=== PATIENT | male | born 1955 | race Caucasian/White ===

== ENCOUNTER 2017-06-09 09:00 | Emergency (ER) | payer OTHER ==
[~2017-06-09] VITALS: Ht 170.2 cm; Wt 73.9 kg
[2017-06-09] MEDS ORDERED: IV NORMAL SALINE 1,000ML 1,000 ML IV SCH (09:09)
--- NOTE | 2017-06-09 09:13 | ED.ADGEN ---
Past History Past Medical History: Hypertension Past Surgical History: No Surgical History Alcohol Use: None Drug Use: None Adult General Chief Complaint Chief Complaint Weakness/fatigue HPI HPI Patient is a 61 year old male who presents with weakness over the last several days. He states that started 2 days ago needs just felt nauseated not been eating or drinking much. He states it also hurts when he tries to swallow. He states he's felt so bad he hasn't felt well enough to smoke cigarettes. Has past medical history of bipolar and hypertension. He was seen by his primary care physician this morning who wanted him to have IV fluids and lab work done at the ER today. He denies any chest pain unless he swallowing and then he states it feels like "a bubble" in his chest. He states he did have 2 episodes of loose stools the last 2 days but denies any vomiting. Review of Systems Review of Systems Constitutional: Denies fever or chills [] Eyes: Denies change in visual acuity, redness, or eye pain [] HENT: Denies nasal congestion or sore throat [] Respiratory: Denies cough or shortness of breath [] Cardiovascular: No additional information not addressed in HPI [] GI: Denies abdominal pain, nausea, vomiting, bloody stools or diarrhea [] : Denies dysuria or hematuria [] Musculoskeletal: Denies back pain or joint pain [] Integument: Denies rash or skin lesions [] Neurologic: Denies headache, focal weakness or sensory changes [] Endocrine: Denies polyuria or polydipsia [] Current Medications Current Medications Current Medications Medications (Trade) Dose Ordered Sig/[facility] Start Time Stop Time Status Last Admin Dose Admin Fentanyl Citrate (Fentanyl 2ml Vial) 50 mcg PRN Q15MIN PRN 06/09/17 10:30 06/10/17 10:29 Sodium Chloride 1,000 ml @ 1,000 mls/hr 1X ONCE 06/09/17 10:15 06/09/17 11:15 DC 06/09/17 10:15 1,000 MLS/HR Allergies Allergies Allergies Coded Allergies Type Severity Reaction Last Updated Verified No Known Drug Allergies 12/02/15 No Physical Exam Physical Exam Constitutional: Well developed, well nourished, no acute distress, non-toxic appearance. [] HENT: Normocephalic, atraumatic, bilateral external ears normal, oropharynx moist, no oral exudates, nose normal. [] Eyes: PERRLA, EOMI, conjunctiva normal, no discharge. [] Neck: Normal range of motion, no tenderness, supple, no stridor. [] Cardiovascular:Heart rate regular rhythm, no murmur [] Lungs & Thorax: Bilateral breath sounds clear to auscultation [] Abdomen: Bowel sounds normal, soft, no tenderness, no masses, no pulsatile masses. [] Skin: Warm, dry, no erythema, no rash. [] Back: No tenderness, no CVA tenderness. [] Extremities: No tenderness, no cyanosis, no clubbing, ROM intact, no edema. [] Neurologic: Alert and oriented X 3, normal motor function, normal sensory function, no focal deficits noted. [] Psychologic: Affect normal, judgement normal, mood normal. [] Current Patient Data Vital Signs Vital Signs Date Time Temp Pulse Resp B/P (MAP) Pulse Ox O2 Delivery O2 Flow Rate FiO2 06/09/17 10:30 82 16 106/61 (76) 97 Room Air 06/09/17 09:09 98.2 Lab Results Laboratory Tests Test 06/09/17 09:24 White Blood Count 9.7 x10^3/uL (4.0-11.0) Red Blood Count 4.76 x10^6/uL (4.30-5.70) Hemoglobin 15.7 g/dL (13.0-17.5) Hematocrit 45.9 % (39.0-53.0) Mean Corpuscular Volume 97 fL (79-100) Mean Corpuscular Hemoglobin 33 pg (25-35) Mean Corpuscular Hemoglobin Concent 34 g/dL (31-37) Red Cell Distribution Width 14.9 % (11.5-14.5) H Platelet Count 238 x10^3/uL (140-400) Neutrophils (%) (Auto) 66 % (31-73) Lymphocytes (%) (Auto) 19 % (24-48) L Monocytes (%) (Auto) 14 % (0-9) H Eosinophils (%) (Auto) 0 % (0-3) Basophils (%) (Auto) 0 % (0-3) Neutrophils # (Auto) 6.4 x10^3uL (1.8-7.7) Lymphocytes # (Auto) 1.9 x10^3/uL (1.0-4.8) Monocytes # (Auto) 1.3 x10^3/uL (0.0-1.1) H Eosinophils # (Auto) 0.0 x10^3/uL (0.0-0.7) Basophils # (Auto) 0.0 x10^3/uL (0.0-0.2) Prothrombin Time 10.9 SEC (9.4-11.4) Prothrombin Time INR 1.1 (0.9-1.1) PTT 27 SEC (23-33) Sodium Level 129 mmol/L (136-145) L Potassium Level 4.9 mmol/L (3.5-5.1) Chloride Level 90 mmol/L (98-107) L Carbon Dioxide Level 22 mmol/L (21-32) Anion Gap 17 (6-14) H Blood Urea Nitrogen 140 mg/dL (8-26) H Creatinine 6.0 mg/dL (0.7-1.3) H Estimated GFR (Cockcroft-Gault) 9.6 Glucose Level 97 mg/dL (70-99) Calcium Level 9.2 mg/dL (8.5-10.1) Magnesium Level 3.4 mg/dL (1.8-2.4) H Total Bilirubin 0.6 mg/dL (0.2-1.0) Direct Bilirubin 0.2 mg/dL (0.0-0.2) Aspartate Amino Transferase (AST) 12 U/L (15-37) L Alanine Aminotransferase (ALT) 19 U/L (16-63) Alkaline Phosphatase 80 U/L (46-116) Creatine Kinase 73 U/L (39-308) Creatine Kinase MB (Mass) 1.8 ng/mL (0.0-3.6) Creatine Kinase MB Relative Index 2.5 % (0-4) Troponin I Quantitative < 0.017 ng/mL (0-0.055) JN-Gxx-V-Type Natriuretic Peptide 199 pg/mL (0-124) H Total Protein 7.8 g/dL (6.4-8.2) Albumin 4.1 g/dL (3.4-5.0) Lipase 137 U/L (73-393) Urine Opiates Screen Neg (NEG) Urine Methadone Screen Neg (NEG) Urine Barbiturates Neg (NEG) Urine Phencyclidine Screen Neg (NEG) Urine Amphetamine/Methamphetamine Neg (NEG) Urine Benzodiazepines Screen Neg (NEG) Urine Cocaine Screen Neg (NEG) Urine Cannabinoids Screen Pos (NEG) Urine Ethyl Alcohol Neg (NEG) EKG EKG EKG shows normal sinus rhythm rate of [address] elevations or T- wave inversions appreciated, left axis deviation noted, QTC 414 ms, as interpreted by me. Radiology/Procedures Radiology/Procedures [address] [address] IMAGING REPORT Signed PATIENT: RISHABH SHELDON ACCOUNT: [id number] : 1955 LOCATION: ER AGE: 61 SEX: M EXAM STATUS: PRE ER ORD. PHYSICIAN: SANDRA GREGORIO MD REASON: weakness PROCEDURE: PORTABLE CHEST 1V Portable AP chest. History: Weakness, chest pain, short of breath AP view was taken of the chest. Lungs are clear. Heart is normal in size. There is no effusion. There is mild scoliosis. Impression: 1. No acute chest disease. DICTATED AND SIGNED BY: BRITTANY RODGERS MD DATE: 06/09/17920 CC: SANDRA GREGORIO MD; PRASHANTH LUOISE MD ~ Course & Med Decision Making Course & Med Decision Making Pertinent Labs and Imaging studies reviewed. (See chart for details) She presents with decreased by mouth intake over the last several days and trouble swallowing. His BUNs is 140 and creatinine is 6. He does not have an acidosis or hyperkalemia. I suspect this is acute on chronic renal failure. Chest x-ray, EKG nonacute. Patient is being given 2 L normal saline and will be admitted to [place] for renal consultation. I'm not sure what is causing his trouble swallowing he might benefit from a GI consult as well. Patient's in stable condition at this time being transferred to [place]. I spoke with Dr. Kaur, who accepts the patient for admission. Patient's in stable condition at this time. Final Impression Final Impression Acute on chronic renal failure Hypertension Bipolar Tobacco abuse Marijuana abuse Problems: Dragon Disclaimer Dragon Disclaimer This electronic medical record was generated, in whole or in part, using a voice recognition dictation system. SANDRA GREGORIO MD 15, 2017 09:13
--- NOTE | 2017-06-09 09:26 | RAD ---
Portable AP chest. History: Weakness, chest pain, short of breath AP view was taken of the chest. Lungs are clear. Heart is normal in size. There is no effusion. There is mild scoliosis. Impression: 1. No acute chest disease.
[2017-06-09 09:41] LABS: BASO % 0 % (0-3); EOS % 0 % (0-3); HEMATOCRIT 45.9 % (39.0-53.0); HEMOGLOBIN 15.7 g/dL (13.0-17.5); LYMPH # 1.9 x10^3/uL (1.0-4.8); LYMPH % 19 % (24-48); MEAN CORPUSCULAR HEMOGLOBIN 33 pg (25-35); MEAN CORPUSCULAR HGB CONC 34 g/dL (31-37); MEAN CORPUSCULAR VOLUME 97 fL (79-100); MONO # 1.3 x10^3/uL (0.0-1.1); MONO % 14 % (0-9); NEUT # 6.4 x10^3uL (1.8-7.7); NEUT % 66 % (31-73); PLATELET COUNT 238 x10^3/uL (140-400); RED BLOOD COUNT 4.76 x10^6/uL (4.30-5.70); RED CELL DISTRIBUTION WIDTH 14.9 % (11.5-14.5); WHITE BLOOD COUNT 9.7 x10^3/uL (4.0-11.0)
[2017-06-09 09:45] LABS: AMPHETAMINE/METHAMPHETAMINE NEG (NEG); BARBITURATES NEG (NEG); BENZODIAZEPINES NEG (NEG); CANNABINOIDS POS (NEG); COCAINE NEG (NEG); METHADONE NEG (NEG); OPIATES NEG (NEG); PHENCYCLIDINE NEG (NEG)
[2017-06-09 10:03] LABS: ALBUMIN 4.1 g/dL (3.4-5.0); CALCIUM 9.2 mg/dL (8.5-10.1); DIRECT BILIRUBIN 0.2 mg/dL (0.0-0.2); GFR 9.6; MAGNESIUM 3.4 mg/dL (1.8-2.4); POTASSIUM 4.9 mmol/L (3.5-5.1); TOTAL BILIRUBIN 0.6 mg/dL (0.2-1.0); TOTAL PROTEIN 7.8 g/dL (6.4-8.2)
[2017-06-09] MEDS ORDERED: IV NORMAL SALINE 1,000ML 1,000 ML IV ONE (10:15)
--- NOTE | 2017-06-09 10:26 | EKG ---
[address] [address] Test Date: 2017-06-09 Test Time: 09:17:45 Pat Name: RISHABH SHELDON Department: Room: Gender: M Physician Non Invasive Cardiologist: NOEMI : 1955 Requested By: SANDRA GREGORIO Order Number: [id number] Reading MD: Measurements Intervals [place] Rate: 81 P: 48 NC: 178 QRS: -30 QRSD: 100 T: 51 QT: 352 QTc: 414 Interpretive Statements SINUS RHYTHM ABNORMAL LEFT AXIS DEVIATION LEFT ANTERIOR FASCICULAR BLOCK QRS(T) CONTOUR ABNORMALITY CANNOT RULE OUT ANTEROLATERAL MYOCARDIAL DAMAGE CANNOT RULE OUT INFERIOR MYOCARDIAL DAMAGE RI6.01 Unconfirmed report No previous ECG available for comparison
[2017-06-09] MEDS: fentaNYL PF 100 MCG/2 ML VIAL IV PRN ×2 (10:35→11:32)
[2017-06-09 11:30] VITALS: BP 105/58
[2017-06-09 11:54] LABS: CLARITY,URINE CLEAR; COLOR,URINE YELLOW; GLUCOSE,URINE NEG (NEG)
[2017-06-09 11:55] LABS: BACTERIA,URINE 0 /HPF (0-FEW); NITRITE,URINE NEG (NEG); RBC,URINE RARE /HPF (0-2); SQUAMOUS EPITHELIAL CELL,UR OCC /LPF; UROBILINOGEN,URINE 0.2 mg/dL (0.2 mg/dL); WBC,URINE 0 /HPF (0-4)
[2017-06-09 11:56] LABS: BILIRUBIN,URINE NEG (NEG)
== END 2017-06-09 12:35 | disposition short-term general hospital (02) ==
LOC: ER 09:00
DX: N17.9 Acute kidney failure, unspecified (principal); N18.9 Chronic kidney disease, unspecified; I12.9 Hypertensive chronic kidney disease with stage 1 through stage 4 chronic kidney disease, or unspecified chronic kidney disease; F31.9 Bipolar disorder, unspecified; F17.210 Nicotine dependence, cigarettes, uncomplicated; F12.10 Cannabis abuse, uncomplicated
CPT/HCPCS: 36415; 71010; 80048; 80076; 80305; 80320; 81001; 82553; 83690; 83735; 83880; 84443; 84484; 85027; 85610; 85730; 93005; 96361; 96374; 99285; J3010; G0481; J7030

== ENCOUNTER 2017-10-10 14:38 | Emergency (ER) | payer SELFPAY ==
[~2017-10-10] VITALS: Ht 170.2 cm; Wt 74.8 kg
[2017-10-10] MEDS ORDERED: BUPIVACAINE MPF 0.5% 30 ML VIAL. SQ ONE (15:30)
--- NOTE | 2017-10-10 15:55 | PHYS DOC ---
Past History Past Medical History: Bipolar, Hypertension Past Surgical History: Other Alcohol Use: None Drug Use: Marijuana Adult General Chief Complaint Chief Complaint: LACERATION/AVULSION HPI HPI Patient is a 61 year old M who presents with laceration to the right index finger on a table saw just prior to arrival. States that he has good feeling in his finger has bleeding is controlled. He is able to move his finger without difficulty. He has no other associated injuries or symptoms. He has no other exacerbating or alleviating factors. Review of Systems Review of Systems Constitutional: Denies fever or chills [] Eyes: Denies change in visual acuity, redness, or eye pain [] HENT: Denies nasal congestion or sore throat [] Respiratory: Denies cough or shortness of breath [] Cardiovascular: No additional information not addressed in HPI [] GI: Denies abdominal pain, nausea, vomiting, bloody stools or diarrhea [] : Denies dysuria or hematuria [] Musculoskeletal: Denies back pain or joint pain [] Integument: Negative except history of present illness Neurologic: Denies headache, focal weakness or sensory changes [] Endocrine: Denies polyuria or polydipsia [] All other systems were reviewed and found to be within normal limits, except as documented in this note. Family History Family History Noncontributory Current Medications Current Medications Current Medications Medications (Trade) Dose Ordered Sig/[facility] Start Time Stop Time Status Last Admin Dose Admin Bupivacaine HCl (Sensorcaine Mpf 0.5%) 30 ml 1X ONCE 10/10/17 15:30 10/10/17 15:31 DC 10/10/17 15:24 30 ML Allergies Allergies Allergies Coded Allergies Type Severity Reaction Last Updated Verified No Known Drug Allergies 12/02/15 No Physical Exam Physical Exam Constitutional: Well developed, well nourished, no acute distress, non-toxic appearance. [] HENT: Normocephalic, atraumatic, bilateral external ears normal, oropharynx moist, no oral exudates, nose normal. [] Eyes: EOMI, conjunctiva normal, no discharge. [] Neck: Normal range of motion, no tenderness, supple, no stridor. [] Cardiovascular:Heart rate regular rhythm, no murmur [] Lungs & Thorax: Bilateral breath sounds clear to auscultation [] Abdomen: Bowel sounds normal, soft, no tenderness, no masses, no pulsatile masses. [] Skin: Warm, dry, no erythema, no rash. Laceration as below on the right index finger Extremities: No tenderness, no cyanosis, no clubbing, ROM intact, no edema. [] Neurologic: Alert and oriented X 3, normal motor function, normal sensory function, no focal deficits noted. [] Psychologic: Affect normal, judgement normal, mood normal. [] Current Patient Data Vital Signs Vital Signs Date Time Temp Pulse Resp B/P (MAP) Pulse Ox O2 Delivery O2 Flow Rate FiO2 10/10/17 15:33 96 18 156/103 (120) 10/10/17 14:38 98.3 99 Room Air EKG EKG [] Radiology/Procedures Radiology/Procedures Finger x-ray- possible avulsion fracture on the posterior PIP Indication: Irregular laceration on the right lateral index finger at the level of the PIP Procedure: The patient was placed in the appropriate position and bupivacaine 0.5% 1 mL was placed on either side of the index finger for digital block. The area was then with chlorhexidine after copious pressurized saline wash was performed. The laceration was using 4-0 Ethilon, 4 interrupted sutures were used. In approximately 1 cm x 1 cm x 1 cm triangular piece of skin was missing on the lateral index finger over the PIP joint. The wound area was then dressed with nonstick dressing and his finger was placed in a splint for immobilization. Total repaired wound length: Approximately 2-1/2 cm length adjacent to the triangular piece of missing skin. The patient tolerated the procedure well Course & Med Decision Making Course & Med Decision Making Pertinent Labs and Imaging studies reviewed. (See chart for details) [] Dragon Disclaimer Dragon Disclaimer This electronic medical record was generated, in whole or in part, using a voice recognition dictation system. Departure Departure: Impression: Primary Impression: Finger laceration Disposition: 01 HOME, SELF-CARE Condition: STABLE Referrals: PRASHANTH LOUISE MD (PCP) Patient Instructions: Facial Laceration Additional Instructions: Biju was seen in the emergency department for finger laceration. No emergency medical condition was found on history or physical exam. His wound was cleaned and repaired with sutures. He did have an x-ray which showed a possible fracture. He was started on antibiotics to prevent infection he is given education that smoking increases his risk for nonhealing and his wound is at high risk for infection. Skin was covered and placed in a splint. He is advised follow-up with his primary care doctor in the next 5-7 days for suture removal and wound evaluation Scripts Amoxicillin/Potassium Clav (AUGMENTIN 875-125 TABLET) 1 Each Tablet 1 TAB PO BID for 7 Days, #14 TAB Prov: JAYDEN CACERES MD 10/10/17 Problem Qualifiers Primary Impression: Finger laceration Encounter type: initial encounter Finger: index finger Damage to nail status: with damage Foreign body presence: unspecified Laterality: right Qualified Codes: S61.310A - Laceration without foreign body of right index finger with damage to nail, initial encounter JAYDEN CACERES MD Oct 10, 2017 15:55
--- NOTE | 2017-10-10 16:17 | RAD ---
Right index finger, 3 views, 10/10/2017: History: Injury There is spurring at the interphalangeal and MCP joints. There are 2 small calcific densities along the posterior aspect of the PIP joint with associated soft tissue swelling. A cortical avulsion fracture is likely. No other fracture or dislocation is identified. IMPRESSION: Probable small cortical avulsion fracture arising from the dorsal aspect of the PIP joint.
[2017-10-10] MEDS ORDERED: AMOX1TAB61 PO (16:32)
[2017-10-10] MEDS ORDERED: DIPHTH,PERTUSS(ACELL),TET TOX 0.5 ML DISP.SYRIN. VAX IM ONE (17:00)
[2017-10-10] MEDS ORDERED: HYDR-971 PO (17:02)
[2017-10-10 17:08] VITALS: BP 144/95
== END 2017-10-10 17:10 | disposition home or self-care (01) ==
LOC: ER 14:38
DX: S61.310A Laceration without foreign body of right index finger with damage to nail, initial encounter (principal); I10 Essential (primary) hypertension; F32.9 Major depressive disorder, single episode, unspecified; F12.10 Cannabis abuse, uncomplicated; W27.0XXA Contact with workbench tool, initial encounter; Y93.89 Activity, other specified; Y99.8 Other external cause status; Y92.89 Other specified places as the place of occurrence of the external cause
CPT/HCPCS: 12002; 73140; 90471; 90715; 99284; J3490